=== PATIENT | male | born 1960 | race American Indian/Alaskan Native ===

== ENCOUNTER 2022-08-10 14:13 | Inpatient (IN) | payer MEDICAID ==
[~2022-08-10] VITALS: Ht 175.3 cm; Wt 125.9 kg
[2022-08-10 14:47] LABS: Basophils # (auto) 0.1 10 ^3/uL (0-0.2); Basophils % (auto) 0.5 % (0.0-2.0); Eosinophils # (auto) 0 10 ^3/uL (0-0.8); Eosinophils % (auto) 0.1 % (0.0-7.0); Hemoglobin 13.5 g/dL (13.5-17.5); Lymphocytes % (auto) 6.2 % (10.0-50.0); Mean Corpuscular Hemoglobin 28.9 pg (28.0-32.0); Mean Corpuscular Volume 87.8 fL (80.0-100.0); Monocytes # (auto) 0.9 10 ^3/uL (0-1.3); Monocytes % (auto) 5.6 % (0.0-12.0); Neutrophils # (auto) 14.7 10 ^3/uL (1.6-8.6); Neutrophils % (auto) 87.6 % (37.0-80.0); Red Blood Cells 4.67 10^6/uL (4.5-5.90); Red Cell Distribution Width 15.6 % (11.8-14.3); White Blood Cell 16.8 10^3/uL (4.4-10.8)
[2022-08-10] MEDS ORDERED: HYDROmorphone HCL 2 MG/ML VL/or syr IM ONE (15:30)
[2022-08-10] MEDS ORDERED: cefTRIAXone 1GM/50ML D5W 50 ML IV ONE (15:30)
[2022-08-10] MEDS ORDERED: ONDANSETRON HCL 4 MG/2 ML VIAL IM ONE (15:30)
[2022-08-10] MEDS ORDERED: SODIUM CHLORIDE 0.9% 1,000 ML IV ONE (15:30)
[2022-08-10 15:36] LABS: Albumin 3.8 g/dL (3.4-5.0); BUN/Creatinine Ratio 19.8 (10.0-20.0); Calcium 9.2 mg/dL (8.5-10.1); Potassium 4.1 mmol/L (3.5-5.1)
[2022-08-10 15:38] LABS: Bilirubin, Total 0.5 mg/dL (0.2-1.0); Total Protein 7.4 g/dL (6.4-8.2)
[2022-08-10 18:12] LABS: Partial Thromboplastin Time 30.2 sec (24.6-33.4)
[2022-08-10 19:08] LABS: Urine Bacteria FEW /hpf (None Seen); Urine Blood Negative /uL (Negative); Urine Mucus FEW (None Seen); Urine Specific Gravity 1.031 (1.001-1.035); Urine WBC 4 /hpf (0 - 3)
[2022-08-10] MEDS ORDERED: DOCUSATE SOD 100 MG CAP PO PRN (19:15)
[2022-08-10] MEDS ORDERED: MORPHINE SULFATE INJ 2 MG/ml SYRG IV PRN (19:15)
[2022-08-10] MEDS ORDERED: ONDANSETRON HCL 4 MG/2 ML VIAL IV PRN (19:15)
[2022-08-10] MEDS ORDERED: ACETAMINOPHEN 325 MG TAB PO PRN (19:15)
[2022-08-10] MEDS ORDERED: CHOL20003 PO (19:31)
[2022-08-10] MEDS ORDERED: LISI-285 PO (19:31)
[2022-08-10 19:49] VITALS: BP 132/67
[2022-08-10] MEDS: HYDROcodone-ACET 5/325MG TAB PO PRN (20:02)
[2022-08-10] MEDS: ALBUTEROL SULF 2.5 MG/0.5ML(0.5%) NEB SOLN NEB SCH (22:15)
[2022-08-10] MEDS: IPRATROPIUM BROM 0.5 MG/2.5ML INH SOL NEB SCH (22:15)
[2022-08-11] MEDS: HYDROcodone-ACET 5/325MG TAB PO PRN ×4 (01:09→20:51)
[2022-08-11] MEDS: SODIUM CHLOR 0.9% PF (SALINE LOCK) 10ML VIAL/SYR IV SCH ×4 (01:13→23:22)
[2022-08-11 05:36] LABS: Basophils # (auto) 0 10 ^3/uL (0-0.2); Basophils % (auto) 0.2 % (0.0-2.0); Eosinophils # (auto) 0.1 10 ^3/uL (0-0.8); Eosinophils % (auto) 0.9 % (0.0-7.0); Hematocrit 38.1 % (41.0-53.0); Hemoglobin 12.9 g/dL (13.5-17.5); Lymphocytes # (auto) 1.3 10 ^3/uL (0.4-5.4); Lymphocytes % (auto) 12.1 % (10.0-50.0); Mean Corpuscular Hemoglobin 29.8 pg (28.0-32.0); Mean Corpuscular Hgb Conc. 33.8 g/dL (32.0-36.0); Mean Corpuscular Volume 88.1 fL (80.0-100.0); Monocytes # (auto) 1.2 10 ^3/uL (0-1.3); Monocytes % (auto) 11.6 % (0.0-12.0); Neutrophils # (auto) 7.9 10 ^3/uL (1.6-8.6); Neutrophils % (auto) 75.2 % (37.0-80.0); Red Blood Cells 4.32 10^6/uL (4.5-5.90); Red Cell Distribution Width 15.7 % (11.8-14.3); White Blood Cell 10.6 10^3/uL (4.4-10.8)
[2022-08-11 05:57] LABS: Albumin 3.3 g/dL (3.4-5.0); Calcium 8.7 mg/dL (8.5-10.1); Potassium 3.8 mmol/L (3.5-5.1)
[2022-08-11 05:59] LABS: BUN/Creatinine Ratio 17.1 (10.0-20.0)
[2022-08-11 06:02] LABS: Bilirubin, Total 0.6 mg/dL (0.2-1.0); Total Protein 7.2 g/dL (6.4-8.2)
[2022-08-11] MEDS: ALBUTEROL SULF 2.5 MG/0.5ML(0.5%) NEB SOLN NEB SCH ×3 (06:11→21:53)
[2022-08-11] MEDS: IPRATROPIUM BROM 0.5 MG/2.5ML INH SOL NEB SCH ×3 (06:11→21:53)
[2022-08-11] MEDS: HYDROCHLOROTHIAZIDE PO SCH (10:00)
[2022-08-11] MEDS: LISINOPRIL PO SCH (10:00)
[2022-08-11] MEDS: CHOLECALCIFEROL (VITD3) 2,000 UNIT CAP/TAB PO SCH (10:36)
[2022-08-11 16:00] VITALS: BP 146/89
[2022-08-11 23:31] VITALS: BP 129/66
[2022-08-12] MEDS: HYDROcodone-ACET 5/325MG TAB PO PRN ×5 (03:13→22:31)
[2022-08-12 04:32] VITALS: BP 109/62
[2022-08-12] MEDS: SODIUM CHLOR 0.9% PF (SALINE LOCK) 10ML VIAL/SYR IV SCH ×3 (05:23→21:39)
[2022-08-12 09:00] VITALS: BP 106/63
[2022-08-12] MEDS: CHOLECALCIFEROL (VITD3) 2,000 UNIT CAP/TAB PO SCH (09:31)
[2022-08-12] MEDS: HYDROCHLOROTHIAZIDE PO SCH (09:32)
[2022-08-12] MEDS: LISINOPRIL PO SCH (09:32)
[2022-08-12 13:00] VITALS: BP 109/67
[2022-08-12] MEDS: IPRATROPIUM BROM 0.5 MG/2.5ML INH SOL NEB SCH ×2 (13:52→22:07)
[2022-08-12] MEDS: ALBUTEROL SULF 2.5 MG/0.5ML(0.5%) NEB SOLN NEB SCH ×2 (13:52→22:07)
[2022-08-12 17:00] VITALS: BP 122/69
[2022-08-12 22:21] VITALS: BP 104/65
[2022-08-13] MEDS: HYDROcodone-ACET 5/325MG TAB PO PRN ×2 (03:32→09:32)
[2022-08-13 05:04] VITALS: BP 104/63
[2022-08-13] MEDS: SODIUM CHLOR 0.9% PF (SALINE LOCK) 10ML VIAL/SYR IV SCH ×2 (06:06→14:00)
[2022-08-13] MEDS: IPRATROPIUM BROM 0.5 MG/2.5ML INH SOL NEB SCH ×2 (06:53→13:54)
[2022-08-13] MEDS: ALBUTEROL SULF 2.5 MG/0.5ML(0.5%) NEB SOLN NEB SCH ×2 (06:53→13:54)
[2022-08-13] MEDS: CHOLECALCIFEROL (VITD3) 2,000 UNIT CAP/TAB PO SCH (09:32)
[2022-08-13] MEDS: LISINOPRIL PO SCH (09:33)
[2022-08-13] MEDS: HYDROCHLOROTHIAZIDE PO SCH (09:33)
[2022-08-13] MEDS ORDERED: HYDR-4902 PO (10:05)
[2022-08-13] MEDS ORDERED: CEPH-510 PO (10:05)
== END 2022-08-13 15:15 | disposition home or self-care (01) | DRG 135 ==
LOC: ER 14:13 → OVERFLOW 19:35 → CENTRAL 08-11 14:00
PROVIDERS: ADMIT Nurse Practitioner Family; ATTEND Internal Medicine Geriatric Medicine
DX: S22.42XA Multiple fractures of ribs, left side, initial encounter for closed fracture (principal); K76.89 Other specified diseases of liver; E66.01 Morbid (severe) obesity due to excess calories; I10 Essential (primary) hypertension; V28.41XA Electric (assisted) bicycle driver injured in noncollision transport accident in traffic accident, initial encounter; Y93.55 Activity, bike riding; Y92.89 Other specified places as the place of occurrence of the external cause; Y99.8 Other external cause status; Z68.41 Body mass index [BMI] 40.0-44.9, adult
CPT/HCPCS: 36415; 71045; 71111; 71250; 76705; 80053; 81001; 84484; 85025; 85610; 85730; 94640; 97110; 97116; 97163; G0378; J0696

== ENCOUNTER 2022-08-15 12:31 | Inpatient (IN) | payer MEDICAID ==
[~2022-08-15] VITALS: Ht 177.8 cm; Wt 126.3 kg
[~2022-08-15 12:31] MED LIST: CEPH-510 PO; CHOL20003 PO; HYDR-4902 PO; LISI-285 PO
[2022-08-15] MEDS ORDERED: HYDROcodone-ACET 10/325MG TAB PO ONE (13:15)
[2022-08-15] MEDS ORDERED: ENOXAPARIN SOD 150 MG/1 ML SYRINGE SC ONE (14:00)
[2022-08-15 14:29] LABS: Basophils # (auto) 0.1 10 ^3/uL (0-0.2); Basophils % (auto) 0.8 % (0.0-2.0); Eosinophils # (auto) 0.1 10 ^3/uL (0-0.8); Eosinophils % (auto) 1.1 % (0.0-7.0); Hematocrit 38.3 % (41.0-53.0); Hemoglobin 12.7 g/dL (13.5-17.5); Lymphocytes # (auto) 0.9 10 ^3/uL (0.4-5.4); Lymphocytes % (auto) 6.8 % (10.0-50.0); Mean Corpuscular Hemoglobin 29.3 pg (28.0-32.0); Mean Corpuscular Hgb Conc. 33.2 g/dL (32.0-36.0); Monocytes # (auto) 1.1 10 ^3/uL (0-1.3); Monocytes % (auto) 8.7 % (0.0-12.0); Neutrophils # (auto) 10.6 10 ^3/uL (1.6-8.6); Neutrophils % (auto) 82.6 % (37.0-80.0); Red Blood Cells 4.35 10^6/uL (4.5-5.90); Red Cell Distribution Width 15.5 % (11.8-14.3); White Blood Cell 12.8 10^3/uL (4.4-10.8)
[2022-08-15 14:44] LABS: Partial Thromboplastin Time 29.5 sec (24.6-33.4)
[2022-08-15 14:45] LABS: Albumin 3.3 g/dL (3.4-5.0); Calcium 8.7 mg/dL (8.5-10.1); Potassium 3.8 mmol/L (3.5-5.1)
[2022-08-15 14:48] LABS: BUN/Creatinine Ratio 27.8 (10.0-20.0); Bilirubin, Total 0.6 mg/dL (0.2-1.0); Total Protein 6.9 g/dL (6.4-8.2)
[2022-08-15] MEDS ORDERED: DOCUSATE SOD 100 MG CAP PO PRN (15:15)
[2022-08-15] MEDS ORDERED: ONDANSETRON HCL 4 MG/2 ML VIAL IV PRN (15:15)
[2022-08-16 01:19] VITALS: BP 107/58
[2022-08-16] MEDS: ENOXAPARIN SOD 150 MG/1 ML SYRINGE SC SCH ×2 (02:36→16:39)
[2022-08-16 05:00] VITALS: BP 101/73
[2022-08-16 07:37] LABS: Basophils # (auto) 0 10 ^3/uL (0-0.2); Basophils % (auto) 0.4 % (0.0-2.0); Eosinophils # (auto) 0.2 10 ^3/uL (0-0.8); Eosinophils % (auto) 1.9 % (0.0-7.0); Hemoglobin 12.5 g/dL (13.5-17.5); Lymphocytes # (auto) 1.2 10 ^3/uL (0.4-5.4); Lymphocytes % (auto) 10.9 % (10.0-50.0); Mean Corpuscular Hgb Conc. 32.8 g/dL (32.0-36.0); Mean Corpuscular Volume 88.4 fL (80.0-100.0); Monocytes # (auto) 1.2 10 ^3/uL (0-1.3); Monocytes % (auto) 11.1 % (0.0-12.0); Neutrophils # (auto) 8.4 10 ^3/uL (1.6-8.6); Neutrophils % (auto) 75.7 % (37.0-80.0); White Blood Cell 11.1 10^3/uL (4.4-10.8)
[2022-08-16 07:59] LABS: Albumin 3.1 g/dL (3.4-5.0); Calcium 8.5 mg/dL (8.5-10.1); Potassium 3.5 mmol/L (3.5-5.1)
[2022-08-16 08:04] LABS: BUN/Creatinine Ratio 20.5 (10.0-20.0); Bilirubin, Total 0.6 mg/dL (0.2-1.0); Total Protein 6.8 g/dL (6.4-8.2)
[2022-08-16 09:00] VITALS: BP 103/55
[2022-08-16] MEDS: LISINOPRIL 10 MG TAB PO SCH (10:00)
[2022-08-16] MEDS ORDERED: cefTRIAXone 1GM/50ML D5W 50 ML IV ONE (12:45)
[2022-08-16] MEDS ORDERED: CHOLECALCIFEROL (VITD3) 2,000 UNIT CAP/TAB PO ONE (12:45)
[2022-08-16] MEDS ORDERED: PANTOPRAZOLE 40 MG TAB PO ONE (12:45)
[2022-08-16 13:00] VITALS: BP 111/58
[2022-08-16] MEDS: SODIUM CHLORIDE 0.9% 1,000 ML IV SCH (13:23)
[2022-08-16] MEDS: MORPHINE SULFATE INJ 2 MG/ml SYRG IV PRN ×2 (16:48→22:50)
[2022-08-16 17:28] VITALS: BP 128/58
[2022-08-16 22:00] VITALS: BP 111/64
[2022-08-17] MEDS: ENOXAPARIN SOD 150 MG/1 ML SYRINGE SC SCH ×2 (02:51→15:55)
[2022-08-17] MEDS: SODIUM CHLORIDE 0.9% 1,000 ML IV SCH (02:52)
[2022-08-17 05:00] VITALS: BP 114/66
[2022-08-17 06:02] LABS: BUN/Creatinine Ratio 20.5 (10.0-20.0); Calcium 8.2 mg/dL (8.5-10.1); Potassium 3.7 mmol/L (3.5-5.1)
[2022-08-17 09:00] VITALS: BP 115/92
[2022-08-17] MEDS: cefTRIAXone 1GM/50ML D5W 50 ML IV SCH (09:16)
[2022-08-17] MEDS: PANTOPRAZOLE 40 MG TAB PO SCH (09:30)
[2022-08-17] MEDS: CHOLECALCIFEROL (VITD3) 2,000 UNIT CAP/TAB PO SCH (09:30)
[2022-08-17] MEDS: LISINOPRIL 10 MG TAB PO SCH (09:37)
[2022-08-17] MEDS ORDERED: FUROSEMIDE 40 MG/4 ML VIAL IV ONE (10:45)
[2022-08-17 13:00] VITALS: BP 149/59
[2022-08-17] MEDS: MORPHINE SULFATE INJ 2 MG/ml SYRG IV PRN ×2 (16:06→23:09)
[2022-08-17 16:50] VITALS: BP 111/55
[2022-08-17 22:00] VITALS: BP 94/52
[2022-08-18] MEDS: ENOXAPARIN SOD 150 MG/1 ML SYRINGE SC SCH ×2 (02:43→18:29)
[2022-08-18 05:00] VITALS: BP 97/50
[2022-08-18 06:44] LABS: BUN/Creatinine Ratio 21.6 (10.0-20.0); Calcium 8.6 mg/dL (8.5-10.1); Potassium 3.8 mmol/L (3.5-5.1)
[2022-08-18 09:00] VITALS: BP 105/59
[2022-08-18] MEDS: cefTRIAXone 1GM/50ML D5W 50 ML IV SCH (09:31)
[2022-08-18] MEDS: LISINOPRIL 10 MG TAB PO SCH (09:35)
[2022-08-18] MEDS: CHOLECALCIFEROL (VITD3) 2,000 UNIT CAP/TAB PO SCH (09:35)
[2022-08-18] MEDS: PANTOPRAZOLE 40 MG TAB PO SCH (09:35)
[2022-08-18] MEDS ORDERED: FUROSEMIDE 40 MG/4 ML VIAL IV ONE (10:45)
[2022-08-18 12:52] VITALS: BP 103/53
[2022-08-18 16:42] VITALS: BP 102/59
[2022-08-18 22:00] VITALS: BP_SYST 170; BP_SYST 91; BP_DIAS 57; BP_DIAS 80
[2022-08-19] MEDS: ENOXAPARIN SOD 150 MG/1 ML SYRINGE SC SCH ×2 (02:45→16:01)
[2022-08-19 05:00] VITALS: BP 92/54
[2022-08-19 06:27] VITALS: BP 99/57
[2022-08-19 09:00] VITALS: BP 104/56
[2022-08-19] MEDS: PANTOPRAZOLE 40 MG TAB PO SCH (10:06)
[2022-08-19] MEDS: CHOLECALCIFEROL (VITD3) 2,000 UNIT CAP/TAB PO SCH (10:06)
[2022-08-19] MEDS: cefTRIAXone 1GM/50ML D5W 50 ML IV SCH (10:07)
[2022-08-19 13:00] VITALS: BP 130/64
[2022-08-19 17:00] VITALS: BP 132/67
[2022-08-19 22:00] VITALS: BP 117/68
[2022-08-20] MEDS: MORPHINE SULFATE INJ 2 MG/ml SYRG IV PRN (00:06)
[2022-08-20 05:00] VITALS: BP 115/61
[2022-08-20] MEDS ORDERED: ENOXAPARIN SOD 150 MG/1 ML SYRINGE SC SCH (06:00)
[2022-08-20 09:00] VITALS: BP 115/61
[2022-08-20] MEDS: CHOLECALCIFEROL (VITD3) 2,000 UNIT CAP/TAB PO SCH (09:33)
[2022-08-20] MEDS: PANTOPRAZOLE 40 MG TAB PO SCH (09:33)
[2022-08-20] MEDS: cefTRIAXone 1GM/50ML D5W 50 ML IV SCH (09:33)
[2022-08-20] MEDS ORDERED: APIX5TAB PO ×3 (10:59→11:21)
[2022-08-20 12:04] VITALS: BP 115/61
[2022-08-20 13:00] VITALS: BP 123/73
[2022-08-20] MEDS ORDERED: APIXABAN 5 MG TAB PO ONE (18:00)
== END 2022-08-20 14:19 | disposition home or self-care (01) | DRG 197 ==
LOC: ER 12:31 → OVERFLOW 15:20 → WEST WING 23:40
PROVIDERS: ADMIT Nurse Practitioner Family; ATTEND Internal Medicine
DX: I82.431 Acute embolism and thrombosis of right popliteal vein (principal); E87.1 Hypo-osmolality and hyponatremia; J98.11 Atelectasis; D72.829 Elevated white blood cell count, unspecified; I10 Essential (primary) hypertension; Z90.49 Acquired absence of other specified parts of digestive tract; Z88.8 Allergy status to other drugs, medicaments and biological substances
CPT/HCPCS: 36415; 71045; 80048; 80053; 83930; 84484; 85025; 85610; 85730; 87081; 93970; 96372; G0378; J0696